=== PATIENT | female | born 1955 | race Two or more races ===

== ENCOUNTER → 2019-09-28 | Outpatient (CLI) | payer OTHER | END | disposition home or self-care (01) | LOC: ECT 11:16 | DX: F32.2 Major depressive disorder, single episode, severe without psychotic features (principal); F41.9 Anxiety disorder, unspecified; M06.9 Rheumatoid arthritis, unspecified; Z79.899 Other long term (current) drug therapy; Z97.8 Presence of other specified devices; E78.5 Hyperlipidemia, unspecified; M79.7 Fibromyalgia ==